=== PATIENT | male | born 1945 | race Two or more races ===

== ENCOUNTER 2017-08-11 11:49 | Observation (INO) | payer MEDICARE ==
[~2017-08-11] VITALS: Ht 165.1 cm; Wt 63.6 kg
[2017-08-11] MEDS: IPRATROPIUM BROMIDE 0.02% 2.5 ML NEB NEB SCH (00:02)
[~2017-08-11 11:49] MED LIST: ADVAIR 250-501 EACH INH; ALBUTEROL; ASPIR 8181 MG PO; CLONIDINE HCL0.2 MG PO; HYDRALAZINE HCL10 MG PO; ISOSORBIDE MONO30 MG PO; LANTUS100 UNITS/ SQ; LEVOTHYROXINE50 MCG PO; LIPITOR40 MG PO; LOSARTAN-HCTZ1 EAC1; METFORMIN HCL1000 MG PO; METFORMIN PO; PLAVIX75 MG PO; PROSCAR5 MG PO; SINGULAIR10 MG PO; THEODUR PO; VERAPAMIL HCL240 MG PO
[2017-08-11] MEDS ORDERED: ASPIRIN 81 MG CHEW TAB PO ONE ×2 (12:30→14:15)
[2017-08-11 12:59] LABS: BASOPHILS # (AUTO) 0.1 (0.0-0.1); BASOPHILS % 0.7 % (0.0-1.0); EOSINOPHILS # (AUTO) 0.1 (0.0-0.4); EOSINOPHILS % 0.8 % (0.0-6.0); HEMATOCRIT 43.1 % (38.2-49.6); HEMOGLOBIN 14.2 g/dL (14.0-18.0); LYMPHOCYTES # (AUTO) 1.5 (1.0-3.2); LYMPHOCYTES % 19.5 % (18.0-39.1); MEAN CORPUSCULAR HEMOGLOBIN 27.8 pg (28-32); MEAN CORPUSCULAR HGB CONC 32.9 g/dL (31-35); MEAN CORPUSCULAR VOLUME 84.5 fL (81-99); MONOCYTES # (AUTO) 0.8 (0.2-0.8); MONOCYTES % 10.1 % (4.4-11.3); NEUTROPHILS # (AUTO) 5.1 (2.1-6.9); NEUTROPHILS % 68.8 % (38.7-80.0); PLATELET COUNT 254 x10e3/uL (140-360); RED CELL DISTRIBUTION WIDTH 14.7 % (11.7-14.4)
[2017-08-11 13:00] LABS: BILIRUBIN,URINE NEGATIVE (NEGATIVE); KETONES,URINE NEGATIVE (NEGATIVE); LEUKOCYTE ESTERASE ,URINE 1+ (NEGATIVE); NITRITE,URINE NEGATIVE (NEGATIVE); URINE UROBILINOGEN 0.2 mg/dL (0.2 - 1)
[2017-08-11 13:01] LABS: CLARITY,URINE SL CLOUDY (CLEAR); COLOR,URINE YELLOW (YELLOW); PROTEIN,URINE DIPSTICK 1+ (NEGATIVE)
[2017-08-11 13:08] LABS: INR 1.17
[2017-08-11 13:17] LABS: ALANINE AMINOTRANSFERASE 17 IU/L (0-55); ALBUMIN 4.2 g/dL (3.5-5.0); ALBUMIN/GLOBULIN RATIO 1.1 (0.8-2.0); ALKALINE PHOSPHATASE 55 IU/L (40-150); ANION GAP 18.1 mmol/L (8-16); BLOOD UREA NITROGEN 14 mg/dL (7-26); BUN/CREATININE RATIO 12 (6-25); CALCIUM 10.3 mg/dL (8.4-10.2); CARBON DIOXIDE 25 mmol/L (22-29); CHLORIDE 101 mmol/L (98-107); CREATINE KINASE 96 IU/L (30-200); CREATININE, SERUM 1.16 mg/dL (0.72-1.25); EST GLOMERULAR FILTRATION RATE > 60 ML/MIN (60-); GLUCOSE 288 mg/dL (74-118); POTASSIUM 4.1 mmol/L (3.5-5.1); SODIUM 140 mmol/L (136-145)
[2017-08-11 13:25] LABS: RBC,URINE 0-5 /HPF (0-5)
[2017-08-11 13:26] LABS: EPITHELIAL CELLS,URINE FEW /LPF; MUCUS,URINE RARE (RARE)
[2017-08-11] MEDS: NITROGLYCERIN 0.4 MG SUBL SL PRN ×3 (15:30→15:45)
[2017-08-11] MEDS ORDERED: MORPHINE SULFATE 2 MG/ML SYR IV STA (15:37)
[2017-08-11] MEDS ORDERED: DEXTROSE 50% SYRINGE 50 ML IV PRN ×2 (16:45→17:15)
[2017-08-11] MEDS: INSULIN REGULAR, HUMAN 100 UNIT/1 ML 3ML VIAL SQ SCH (17:15)
[2017-08-11 20:00] VITALS: BP 158/68
[2017-08-11] MEDS ORDERED: IOPAMIDOL 370 MG/ML 200 ML INFUS..BTL INJ ONE (20:12)
[2017-08-11] MEDS ORDERED: SODIUM CHLORIDE 0.9% 50ML 50 ML ONE (20:12)
--- NOTE | 2017-08-11 20:32 | History and Physical ---
This is a 72-year-old male who comes in with chest pain. HISTORY OF PRESENT ILLNESS: Mr. Joseph Harmon has a history of coronary artery disease, COPD, asthma, hypothyroidism. He was in his usual state of health until the patient started to have some shortness of breath associated with some chest pain. Three days prior to admission, the patient continued to have chest pain this morning. The patient's chest pain was intractable. He came into the emergency room and was admitted for chest pain, rule out acute coronary syndrome. HOME MEDICATIONS: Aspirin, atorvastatin 40, clonidine 0.2, Clopid 75, 5, Advair 250/50, hydralazine 10 mg q.12 h. Insulin 21 units at night time. Isosorbide dinitrate 60 mg. Levothyroxine 60 mcg. Losartan 125. Metformin 1000 mg twice a day. 10 mg. Verapamil 240 mg ER. SOCIAL HISTORY: No ETOH. No IV drug abuse. He lives with his . REVIEW OF SYSTEMS: Positive for chest pain. Positive for shortness of breath. No nausea, vomiting, diarrhea. No constipation. No rectal bleeding. No hematochezia and no hematemesis. No blurry vision. No diplopia. No paresthesias. No neurological findings. PHYSICAL EXAMINATION VITAL SIGNS: Temperature normal. Blood pressure 140/80. Pulse oximetry 100% on 2 liters. HEENT: Normocephalic, atraumatic. Pupils react to light and accommodation. LUNGS: Decreased air entry. Positive for some scattered inspiratory wheezes. ABDOMEN: Nontender, nondistended. EXTREMITIES: No cyanosis, clubbing or edema. LABORATORY DATA: White count is 7.45. Platelets 254,000. Chemistry: Sodium 140, potassium 4.1, BUN 114 and creatinine 1.16. Glucose 288. Calcium 10.3. Urine showed a few bacteria, otherwise negative. IMAGING: Chest x-ray has not been read. ASSESSMENT: Chest pain, rule out acute coronary syndrome. Troponins have been negative so far. Will consult Dr. Dodge, his phytopathology teacher, and also consulted Dr. Jernigan, his quarter section ironer. Will also do a CT scan and D-dimer levels to rule out pulmonary embolism. Further recommendations depending on clinical course. Will also restart his home medications. Job#: [id number] GH
[2017-08-11] MEDS ORDERED: NON-FORMULARY MEDICATION (Metformin Hcl 1,000 MG) PO SCH (21:00)
[2017-08-11] MEDS ORDERED: METFORMIN HCL 500 MG TAB CR PO SCH (21:00)
[2017-08-11 21:06] LABS: CREATINE KINASE MB 1.6 ng/mL (0-5.0)
--- NOTE | 2017-08-11 22:16 | Diagnostic Imaging Report ---
EXAM: CT CHEST W ORDER DATE: 08/11/2017 7:09 PM Time stamp on exam: 2121 hours INDICATION: Chest pain, tightness, difficulty breathing COMPARISON: None TECHNIQUE: Multidetector CT scanning of the chest was performed. Coronal and sagittal multiplanar reformations were obtained. PE protocol performed IV Contrast: 100 cc Isovue-370 CTDIvol has been reviewed. It is below the limits set by the Radiation Protocol Committee (RPC). FINDINGS: LUNGS AND AIRWAYS: The trachea and major bronchi are unremarkable. Left apical scarring. Right upper lobe, middle lobe and lingular scarring. Small foci of bronchiolitis in each lung base and possibly superimposed in the left upper lung scarring as well. Moderate bronchial thickening. PLEURA: Pleural parenchymal scarring left apex. HEART, MEDIASTINUM, VESSELS: The heart is within normal size limits. Scattered coronary artery calcifications. Calcifications of the thoracic aorta without aneurysm. No evidence of a pulmonary embolism to the segmental level. UPPER ABDOMEN: Nodular hyperplasia of the bilateral adrenal glands. MUSCULOSKELETAL: No acute findings. IMPRESSION: No evidence of a pulmonary embolism. Scattered areas of bronchiolitis. Signed by: Dr. Mary Vogel M.D. on 08/11/2017 10:12 PM
[2017-08-11] MEDS: ATORVASTATIN 40 MG TAB PO SCH (22:46)
[2017-08-12] VITALS (7 sets, daily range): BP systolic 113–196; BP diastolic 55–78
[2017-08-12] MEDS: INSULIN DETEMIR 100 UNIT/ML PEN SQ SCH ×2 (00:15→22:09)
[2017-08-12] MEDS ORDERED: CLONIDINE HCL 0.1 MG TAB PO PRN (03:00)
[2017-08-12] MEDS: IPRATROPIUM BROMIDE 0.02% 2.5 ML NEB NEB SCH ×6 (03:30→22:05)
[2017-08-12] MEDS ORDERED: GABAPENTIN100 MG (06:13)
[2017-08-12 06:37] LABS: BASOPHILS # (AUTO) 0.1 (0.0-0.1); BASOPHILS % 0.8 % (0.0-1.0); EOSINOPHILS # (AUTO) 0.2 (0.0-0.4); EOSINOPHILS % 2.4 % (0.0-6.0); HEMATOCRIT 40.7 % (38.2-49.6); HEMOGLOBIN 13.3 g/dL (14.0-18.0); LYMPHOCYTES # (AUTO) 1.6 (1.0-3.2); LYMPHOCYTES % 21.6 % (18.0-39.1); MEAN CORPUSCULAR HEMOGLOBIN 27.8 pg (28-32); MEAN CORPUSCULAR HGB CONC 32.7 g/dL (31-35); MEAN CORPUSCULAR VOLUME 85.1 fL (81-99); MONOCYTES # (AUTO) 0.7 (0.2-0.8); NEUTROPHILS # (AUTO) 4.8 (2.1-6.9); NEUTROPHILS % 64.9 % (38.7-80.0); PLATELET COUNT 240 x10e3/uL (140-360); RED BLOOD COUNT 4.78 x10e6/uL (4.3-5.7); RED CELL DISTRIBUTION WIDTH 14.6 % (11.7-14.4)
[2017-08-12 07:01] LABS: ALANINE AMINOTRANSFERASE 13 IU/L (0-55); ALBUMIN 3.4 g/dL (3.5-5.0); ALBUMIN/GLOBULIN RATIO 1.1 (0.8-2.0); ALKALINE PHOSPHATASE 44 IU/L (40-150); ANION GAP 14.2 mmol/L (8-16); BLOOD UREA NITROGEN 15 mg/dL (7-26); BUN/CREATININE RATIO 17 (6-25); CALCIUM 8.9 mg/dL (8.4-10.2); CARBON DIOXIDE 27 mmol/L (22-29); CHLORIDE 104 mmol/L (98-107); CHOLESTEROL 104 MD/DL (0-199); CREATINE KINASE 76 IU/L (30-200); CREATININE, SERUM 0.86 mg/dL (0.72-1.25); EST GLOMERULAR FILTRATION RATE > 60 ML/MIN (60-); HDL CHOLESTEROL 26 MG/DL (40-60); LDL CHOLESTEROL 64 MG/DL (60-130); POTASSIUM 3.2 mmol/L (3.5-5.1); SODIUM 142 mmol/L (136-145); TRIGLYCERIDES 69 MG/DL (0-149)
[2017-08-12 07:07] LABS: GLUCOSE 52 mg/dL (74-118)
[2017-08-12] MEDS: INSULIN REGULAR, HUMAN 100 UNIT/1 ML 3ML VIAL SQ SCH ×4 (07:30→22:08)
[2017-08-12] MEDS: ASPIRIN 81 MG CHEW TAB PO SCH (08:28)
[2017-08-12] MEDS: VERAPAMIL HCL 240 MG TABSR PO SCH (08:28)
[2017-08-12] MEDS: ISOSORBIDE MONONITRATE 30 MG TAB CR PO SCH (08:28)
[2017-08-12] MEDS: FINASTERIDE 5 MG TAB PO SCH (08:29)
[2017-08-12] MEDS: CLONIDINE HCL 0.2 MG TAB PO SCH ×2 (08:29→17:00)
[2017-08-12] MEDS ORDERED: ASPIRIN 325 MG TAB EC PO SCH (09:00)
[2017-08-12] MEDS ORDERED: LEVOTHYROXINE SODIUM 50 MCG TAB PO SCH (09:00)
[2017-08-12] MEDS ORDERED: MONTELUKAST SODIUM 10 MG TAB PO SCH ×2 (09:00→21:00)
[2017-08-12] MEDS ORDERED: CLOPIDOGREL BISULFATE 75 MG TAB PO SCH (09:00)
[2017-08-12] MEDS ORDERED: NON-FORMULARY MEDICATION (Atorvastatin Calcium (Lipitor) 40 MG) PO SCH (09:00)
[2017-08-12] MEDS ORDERED: THEOPHYLLINE PO SCH (09:00)
[2017-08-12] MEDS ORDERED: THEOPHYLLINE 200 MG TABCR PO SCH (09:00)
[2017-08-12] MEDS: GABAPENTIN 100 MG CAP PO SCH (12:09)
[2017-08-12] MEDS ORDERED: HYDRALAZINE HCL 20 MG/ML VIAL IV PRN ×2 (12:30)
[2017-08-12] MEDS ORDERED: METOPROLOL TARTRATE INJ 1 MG/ML VIAL IV PRN (12:30)
[2017-08-12 12:47] LABS: MAGNESIUM 1.7 MG/DL (1.3-2.1); PHOSPHORUS 4.2 MG/DL (2.3-4.7)
[2017-08-12 12:53] LABS: CREATINE KINASE MB 1.4 ng/mL (0-5.0)
[2017-08-12 13:04] LABS: FREE THYROXINE INDEX 2.5993 (1.4-3.8); THYROID STIMULATING HORMONE 2.304 uIU/mL (0.350-4.940)
[2017-08-12] MEDS ORDERED: POTASSIUM CHLORIDE 20 MEQ TAB CR PO PRN (13:30)
--- NOTE | 2017-08-12 13:34 | Consultation ---
DATE OF CONSULTATION: PULMONARY CONSULTATION PATIENT OF: Dr. Johnie Arriaga. HPI: A charming 72-year-old gentleman, well known to the pulmonary service, admitted with chest tightness and shortness of breath. No cough. No fever and chills. History of hypertension, coronary artery disease. History of bypass surgery in 1999. History of BOOP. History of asthma. Pain relieved in the emergency room with nitroglycerin. Insulin-dependent diabetes. His asthma has been stable for many years. His list of medications, which apparently were not noted in the emergency room or by the nursing staff on the floor were not restarted. He has been on Apresoline, Losartan, verapamil, metformin, Lantus insulin, NovoLog insulin, Levoxyl, Neurontin, Plavix, aspirin, Singulair, theophylline, Lipitor, Zantac, albuterol, Advair, Ismo, and clonidine p.r.n. He sees Dr. Dodge. PHYSICAL EXAMINATION GENERAL: He is a well-developed white male, in no acute distress, looking stated age. VITAL SIGNS: Temperature 97.2, pulse 70, respirations 18, blood pressure 123/71. HEENT: Head normocephalic, atraumatic. Eyes; extraocular movements intact. NECK: Median sternotomy scar well healed. LUNGS: Diminished breath sounds. HEART: Regular rhythm. ABDOMEN: Nontender. EXTREMITIES: Nonedematous. Nonspecific EKG changes suggesting ischemia. Cardiology opinion is pending. Blood sugar has been well controlled. Metformin is held. White count was elevated on admission at 13.69, though afebrile. CT angiogram reveals no evidence of pulmonary embolus. There is evidence of bronchiolitis. Thank you for this kind referral. Job#: [id number] VAS
[2017-08-12] MEDS ORDERED: POTASSIUM CHLORIDE 20 MEQ TAB CR PO NR ×2 (13:45→17:00)
[2017-08-12] MEDS: SALMETEROL/FLUTICASONE 250/50 INH SCH (17:00)
[2017-08-12] MEDS ORDERED: HYDRALAZINE HCL 10 MG TAB PO SCH (21:00)
[2017-08-12] MEDS: CLOPIDOGREL BISULFATE 75 MG TAB PO SCH (21:00)
[2017-08-12] MEDS ORDERED: ISOSORBIDE MONONITRATE 30 MG TAB CR PO SCH (21:00)
[2017-08-12] MEDS ORDERED: CLONIDINE HCL 0.1 MG TAB PO SCH (21:00)
[2017-08-12] MEDS: THEOPHYLLINE 200 MG TABCR PO SCH (22:07)
[2017-08-12] MEDS: ATORVASTATIN 40 MG TAB PO SCH (22:07)
[2017-08-13] VITALS: BP 131/60
[2017-08-13] MEDS: IPRATROPIUM BROMIDE 0.02% 2.5 ML NEB NEB SCH ×4 (03:00→15:39)
[2017-08-13 04:00] VITALS: BP 138/69
[2017-08-13] MEDS ORDERED: LEVOTHYROXINE SODIUM 50 MCG TAB PO SCH (07:30)
[2017-08-13 08:00] VITALS: BP 130/67
[2017-08-13] MEDS: VERAPAMIL HCL 240 MG TABSR PO SCH (08:35)
[2017-08-13] MEDS: CLONIDINE HCL 0.2 MG TAB PO SCH (08:35)
[2017-08-13] MEDS: INSULIN REGULAR, HUMAN 100 UNIT/1 ML 3ML VIAL SQ SCH ×2 (08:35→11:50)
[2017-08-13] MEDS: ASPIRIN 81 MG CHEW TAB PO SCH (08:35)
[2017-08-13] MEDS: ISOSORBIDE MONONITRATE 30 MG TAB CR PO SCH (08:36)
[2017-08-13] MEDS: THEOPHYLLINE 200 MG TABCR PO SCH (08:36)
[2017-08-13] MEDS: GABAPENTIN 100 MG CAP PO SCH (08:36)
[2017-08-13] MEDS: FINASTERIDE 5 MG TAB PO SCH (08:36)
[2017-08-13] MEDS: CLOPIDOGREL BISULFATE 75 MG TAB PO SCH (08:39)
[2017-08-13] MEDS: SALMETEROL/FLUTICASONE 250/50 INH SCH (10:39)
[2017-08-13 11:56] VITALS: BP 154/78
[2017-08-13 15:19] VITALS: BP 142/62
[2017-08-14] MEDS ORDERED: METFORMIN HCL 500 MG TAB CR PO SCH (17:00)
== END 2017-08-13 16:23 | disposition home or self-care (01) ==
LOC: ER 11:49 → ERHOLD 14:36 → IMCU 19:56
PROVIDERS: ADMIT Family Medicine; ATTEND Family Medicine
DX: R07.89 Other chest pain (principal); I10 Essential (primary) hypertension; E11.9 Type 2 diabetes mellitus without complications; E78.5 Hyperlipidemia, unspecified; J44.9 Chronic obstructive pulmonary disease, unspecified; Z95.1 Presence of aortocoronary bypass graft; I25.10 Atherosclerotic heart disease of native coronary artery without angina pectoris; E03.9 Hypothyroidism, unspecified; J98.4 Other disorders of lung
CPT/HCPCS: 36415 ×3; 71045; 71260; 80053 ×2; 80061; 81001; 82550 ×2; 82553 ×2; 82948 ×3; 83735; 83880 ×2; 84100; 84436; 84443; 84479; 84484 ×2; 84550; 85025 ×2; 85379; 85610; 85730; 93005 ×2; 93306; 94640 ×4; 99284; G0378 ×3; J2270; Q9967

== ENCOUNTER → 2017-09-12 | Outpatient (CLI) | payer MEDICARE ==
[~2017-09-12] MED LIST changes: +GABAPENTIN100 MG
--- NOTE | 2017-09-12 11:51 | Diagnostic Imaging Report ---
PROCEDURE:CT CHEST WITHOUT CONTRAST COMPARISON:[facility], CT, CT CHEST WO, 01/23/2017, 13:46. INDICATIONS:FEVER, SHORT OF BREATH TECHNIQUE: Axial CT images of the chest were obtained from the lung apices through the adrenal glands. Coronal and sagittal reformations were made available for review. No intravenous contrast was administered. RADIATION DOSE: Total DLP: 345.61 mGy*cm Estimated effective dose: (DLP x 0.014 x size factor) mSv FINDINGS: Lungs: Right lung: Diffusely hyperinflated with multiple peripheral groundglass nodules throughout the lung. The majority of these are new. Some for example, in the base of the right middle lobe, are grossly stable. There is diffuse bronchial wall thickening. A semi-solid nodule has developed in the posterior apex (image 20) measuring 7 x 8 mm. Left lung: Diffusely hyperinflated with multiple peripheral ground glass nodules in the mid and lower lung zones. These are new. Chronic atelectasis in the lingula is stable. Fibrotic changes in the apex are stable. There is diffuse bronchial wall thickening. Airways: Main airways are patent. Pleura:Left apical pleural thickening measures 2.2 cm and is stable in appearance. No pleural effusions have developed. Heart \T\ Mediastinum:Stable cardiac bypass changes. The main pulmonary artery measures 2.9 cm. The descending aorta measures 3 cm. No pericardial effusion. The esophagus is collapsed. Lymph nodes: No enlarged axillary or subclavicular lymph nodes. Mediastinal lymph nodes are prominent, measuring up to 12 mm in length. Some of these lymph nodes have fatty ernestina. A right paratracheal lymph node measures 7 x 11 mm (previously, 7 x 10 mm). A right paratracheal lymph node (image 27) measures 9 mm (previously, 7 mm). No enlarged subcarinal lymph nodes or hilar lymph nodes given the lack of intravenous contrast. Upper abdomen:Visualized portions of the liver and spleen are normal. The gallbladder is present and is grossly normal. There is bilateral thickening and nodularity of the adrenal glands, similar to previous exam. There are tiny calcifications in the pancreas without evidence of ductal dilatation. A 2.4 cm low attenuating lesion in the upper pole the left kidney is incompletely imaged. Musculoskeletal:Median sternotomy is well healed. There degenerative changes of the spine consistent with a. No compression deformities. No lytic or blastic lesions. CONCLUSION: 1. Interval development of inflammatory appearing nodules throughout the lungs with diffuse bronchial wall thickening. Findings are suggestive of bronchopneumonia. 2. Stable pulmonary hyperinflation consistent with COPD. 3. Top normal size of the main pulmonary artery. 4. Chronic left apical fibrotic changes and pleural thickening are stable. 5. Mildly prominent mediastinal lymph nodes are likely reactive. 6. New right upper lobe nodule should be followed in 4-6 months to assess interval change/resolution. 7. Stable bilateral adrenal hyperplasia. 8. Low attenuating lesion in left kidney is likely a cyst. This should be confirmed with renal ultrasound. 9. Stable postoperative changes from cardiac bypass. Dictated by: Andreia Gadriner M.D. on 09/12/2017 at 11:52 Electronically approved by: Andreia Gardiner M.D. on 09/12/2017 at 11:52
== END ==
LOC: CT 10:04
PROVIDERS: ATTEND Internal Medicine
DX: R50.9 Fever, unspecified (principal)
CPT/HCPCS: 71250

== ENCOUNTER → 2018-10-30 | Outpatient (CLI) | payer MEDICARE ==
--- NOTE | 2018-10-30 11:52 | Diagnostic Imaging Report ---
Chest, 2 views, 10/30/2018. History: Cough. Comparison: CT chest 08/11/2017. Findings: The cardiomediastinal silhouette and pulmonary vasculature are within normal limits. Left apical pleural thickening and diffuse left-sided pulmonary scarring are unchanged. Scattered linear scarring is also noted in the right lung. There is no focal consolidation or effusion. Median sternotomy wires are present. There are no acute osseous or soft tissue abnormalities. Impression: No acute cardiopulmonary abnormality. Signed by: Sulaiman Stanton on 10/30/2018 11:49 AM
== END ==
LOC: RAD 10:01
PROVIDERS: ATTEND Family Medicine
DX: R05 Cough (principal)
CPT/HCPCS: 71046

== ENCOUNTER → 2019-04-12 | Outpatient (CLI) | payer MEDICARE ==
--- NOTE | 2019-04-12 11:20 | Diagnostic Imaging Report ---
EXAMINATION: MRI of the cervical spine without contrast HISTORY: Neck and left shoulder pain, cervical spondylosis COMPARISON: None available TECHNIQUE: Sagittal T1, T2, STIR; axial T2, gradient echo. FINDINGS: Curvature: Normal lordosis. Vertebrae: No evidence of neoplasm, infection, or fracture. Foramen magnum: No mass, Chiari malformation, or basilar invagination. Spinal Cord: Normal size and signal intensity. Soft Tissues: Unremarkable. Degenerative changes: C1-C2: Unremarkable. C2-C3: Unremarkable. C3-C4: Disc osteophyte complex formation, bilateral uncovertebral and facet arthrosis. Moderate spinal canal and left foraminal stenosis. Mild right foraminal stenosis. C4-C5: Disc osteophyte complex formation, bilateral uncovertebral and facet arthrosis. Moderate spinal canal and cksp-uf-kzstfozl bilateral foraminal stenosis. C5-C6: Asymmetric left disc osteophyte complex formation, bilateral uncovertebral and facet arthrosis. Mild spinal canal, moderate right and moderately severe left foraminal stenosis, compression upon the exiting left C6 root cannot be excluded. C6-C7: Minimal disc bulge and bilateral facet arthrosis. No stenoses C7-T1: Small disc osteophyte complex formation, mild uncovertebral and facet arthrosis. Minimal right foraminal narrowing. IMPRESSION: 1. Moderate degenerative spinal canal and left foraminal stenosis at C3-C4. 2. Moderate degenerative spinal canal and mqmn-mh-mnkpmikk foraminal stenosis at C4-C5. 3. Moderate right and moderately severe left foraminal stenoses at C5-C6, compression upon the exiting left C6 nerve root cannot be excluded. Signed by: Dr. Danelle Joel M.D. on 04/12/2019 11:17 AM
== END ==
LOC: MRI 09:41
PROVIDERS: ATTEND Physical Medicine & Rehabilitation
DX: M47.812 Spondylosis without myelopathy or radiculopathy, cervical region (principal)
CPT/HCPCS: 72141

== ENCOUNTER → 2019-07-24 | Day surgery (SDC) | payer MEDICARE ==
[2019-07-19 13:32] LABS: BASOPHILS % 0.3 % (0.0-1.0); EOSINOPHILS # (AUTO) 0.2 (0.0-0.4); EOSINOPHILS % 1.3 % (0.0-6.0); HEMATOCRIT 48.5 % (38.2-49.6); HEMOGLOBIN 16.5 g/dL (14.0-18.0); LYMPHOCYTES # (AUTO) 1.7 (1.0-3.2); LYMPHOCYTES % 12.4 % (18.0-39.1); MEAN CORPUSCULAR HEMOGLOBIN 28.1 pg (28-32); MEAN CORPUSCULAR VOLUME 82.6 fL (81-99); MONOCYTES # (AUTO) 1.1 (0.2-0.8); MONOCYTES % 8.2 % (4.4-11.3); NEUTROPHILS # (AUTO) 10.4 (2.1-6.9); NEUTROPHILS % 77.6 % (38.7-80.0); PLATELET COUNT 308 x10e3/uL (140-360); RED BLOOD COUNT 5.87 x10e6/uL (4.3-5.7); RED CELL DISTRIBUTION WIDTH 13.9 % (11.7-14.4)
[~2019-07-24] MED LIST changes: +BREO ELLIPTA 21 EACH INH; +FENTANYL CITRATE/PF 100MCG/2 ML INJ ONE; +GLUCAGON FOR INJ 1 MG VIAL ONE; +HYOSCYAMINE 0.125 MG TAB ONE; +NOVOLOG MI100 UNIT/1 SC; +PRO AIR INH; +PROPOFOL IV EMULSION 10 MG/ML 50 ML VIAL ONE
--- OUTSIDE RECORDS SUMMARY | 2019-07-24 10:33 | XMS REPORT ---
Author Author [facility] Address Unknown Phone Unavailable Care Team Providers Care Cia Agent Name Role Phone Ilene DUEÑAS Unavailable Unavailable BELKYS, KADY Unavailable Unavailable MICHELLE, ALFARO Unavailable Unavailable Problems This patient has no known problems. Allergies, Adverse Reactions, Alerts This patient has no known allergies or adverse reactions. Medications This patient has no known medications. Results Test Description Test Time Test Comments Text Results Atomic Results Result Comments ABDOMEN 2 VIEW 2019-07-02 14:48:00 [place] [address] Patient Name: CHELSEA TABARES MR #: [id number] : 1945 Age/Sex: 74/M Req #: [id number] Adm Physician: Ordered by: MARRY DUEÑAS MD Report #: [id number] Location: [facility] Room/Bed: Procedure: [id number] DX/ABDOMEN 2 VIEW Exam Date: 07/02/19 Exam Time: 1425 REPORT STATUS: Signed Exam: KUB - 2 views Indication: Constipation Zeyad rison: None Findings: Not obstructive bowel gas pattern. No free air. Normal stool burden in the colon. Phleboliths in the pelvis. No acute osseous injury. Mild degenerative changes of the visualized spine. The partially visualized lung bases appear clear. Impression: Nonobstructive bowel gas pattern. No free air. Normal stool burden in the colon. Signed by: Tao Loya MD on 07/02/2019 2:49 PM Dictated By: TAO LOYA MD 48 Transcribed By: AMPARO on 07/02/191448 COPY TO: MARRY DUEÑAS MD MRI SPINE CERVICAL WO 2019-04-12 11:09:00 [place] [address] Patient Name: CHELSEA TABARES MR #: [id number] : 1945 Age/Sex: 73/M Req #: [id number] Adm Physician: Ordered by: KADY RIZVI M.D. Report #: [id number] Location: MRI Room/Bed: Procedure: [id number] MRI/MRI SPINE CERVICAL WO Exam Date: Exam Time: REPORT STATUS: Signed EXAMINATION: MRI of the cervical spine without contrast HI STORY: Neck and left shoulder pain, cervical spondylosis COMPARISON: None available TECHNIQUE: Sagittal T1, T2, STIR; axial T2, gradient echo. FINDINGS: Curvature: Normal lordosis. Vertebrae: No evidence of neoplasm, infection, or fracture. Foramen magnum: No mass, Chiari malformation, or basilar invagination. Spinal Cord: Normal size and signal intensity. Soft Tissues: Unremarkable. Degenerative changes: C1-C2: Unremarkable. C2-C3: Unremarkable. C3-C4: Disc osteophyte complex formation, bilateral uncovertebral and facet arthrosis. Moderate spinal canal and left foraminal stenosis. Mild right foraminal stenosis. C4-C5: Disc osteophyte complex formation, bilateral uncovertebral and facet arthrosis. Moderate spinal canal and vllg-vl-alawqcwr bilateral foraminal stenosis. C5-C6: Asymmetric left disc osteophyte complex formation, bilateral uncovertebral and facet arthrosis. Mild spinal canal, moderate right and moderately severe left foraminal stenosis, compression upon the exiting left C6 root cannot be excluded. C6-C7: Minimal disc bulge and bilateral facet arthrosis. No stenoses C7-T1: Small disc osteophyte complex formation, mild uncovertebral and facet arthrosis. Minimal right foraminal narrowing. IMPRESSION: 1. Moderate degenerative spinal canal and left foraminal stenosis at C3-C4. 2. Moderate degenerative spinal canal and cqot-vt-xwiirlmh foraminal stenosis at C4-C5. 3. Moderate right and moderately severe left foraminal stenoses at C5-C6, compression upon the exiting left C6 nerve root cannot be excluded. Signed by: Dr. Danelle Joel M.D. on 04/12/2019 11:17 AM Dictated By: DANELLE JOEL MD 16 Transcribed By: AMPARO on 04/12/191116 COPY TO: KADY RIZVI M.D. CHEST 2 VIEWS 2018-10-30 11:48:00 [place] [address] Patient Name: CHELSEA TABARES MR #: [id number] : 1945 Age/Sex: 73/M Req #: [id number] Adm Physician: Ordered by: MARRY DUEÑAS MD Report #: [id number] Location: [facility] Room/Bed: Procedure: [id number] DX/CHEST 2 VIEWS Exam Date: 10/30/18 Exam Time: 1042 REPORT STATUS: Signed Chest, 2 views, 10/30/2018. History: Cough. Comparison: CT chest 08/11/2017. Findings: The cardiomediastinal silhouette and pulmonary vasculature are within normal limits. Left apical pleural thickening and diffuse left-sided pulmonary scarring are unchanged. Scattered linear scarring is also noted in the right lung. There is no focal consolidation or effusion. Median sternotomy wires are present. There are no acute osseous or soft tissue abnormalities. Impression: No acute cardiopulmonary abnormality. Signed by: Sulaiman Stanton on 10/30/2018 11:49 AM Dictated By: SULAIMAN STANTON MD 1149 Transcribed By: AMPARO on 10/30/18 1149 COPY TO: MARRY DUEÑAS MD CT CHEST WO [place] [address] Patient Name: CHELSEA TABARES MR #: [id number] : 1945 Age/Sex: 72/M Req #: [id number] Adm Physician: Ordered by: DOMINIC MARTINEZ MD Report #: [id number] Location: CT Room/Bed: Procedure: [id number] CT/CT CHEST WO Exam Date: 09/12/17 Exam Time: 1025 REPORT STATUS: Signed PROCEDURE: CT CHEST WITHOUT CONTRAST COMPARISON: [facility], CT, CT CHEST WO, 01/23/2017, 13:46. INDICATIONS: FEVER, SHORT OF BREATH TECHNIQUE: Axial CT images of the chest were obtained from the lung apices through the adrenal glands. Coronal and sagittal reformations were made available for review. No intravenous contrast was administered. RADIATION DOSE: Total DLP: 345.61 mGy*cm Estimated effective dose: (DLP x 0.014 x size factor) mSv FINDINGS: Lungs: Right lung: Diffusely hyperinflated with multiple peripheral groundglass nodules throughout the lung. The majority of these are new. Some for example, in the base of the right middle lobe, are grossly stable. There is diffuse bronchial wall thickening. A semi-solid nodule has developed in the posterior apex (image 20) measuring 7 x 8 mm. Left lung: Diffusely hyperinflated with multiple peripheral ground glass nodules in the mid and lower lung zones. These are new. Chronic atelectasis in the lingula is stable. Fibrotic changes in the apex are stable. There is diffuse bronchial wall thickening. Airways: Main airways are patent. Pleura: Left apical pleural thickening measures 2.2 cm and is stable in appearance. No pleural effusions have developed. Heart T Mediastinum: Stable cardiac bypass changes. The main pulmonary artery measures 2.9 cm. The descending aorta measures 3 cm. No pericardial effusion. The esophagus is collapsed. Lymph nodes: No enlarged axillary or subclavicular lymph nodes. Mediastinal lymph nodes are prominent, measuring up to 12 mm in length. Some of these lymph nodes have fatty ernestina. A right paratracheal lymph node measures 7 x 11 mm (previously, 7 x 10 mm). A right paratracheal lymph node (image 27) measures 9 mm (previo usly, 7 mm). No enlarged subcarinal lymph nodes or hilar lymph nodes given the lack of intravenous contrast. Upper abdomen: Visualized portions of the liver and spleen are normal. The gallbladder is present and is grossly normal. There is bilateral thickening and nodularity of the adrenal glands, similar to previous exam. There are tiny calcifications in the pancreas without evidence of ductal dilatation. A 2.4 cm low attenuating lesion in the upper pole the left kidney is incompletely imaged. Musculoskeletal: Median sternotomy is well healed. There degenerative changes of the spine consistent with a. No compression deformities. No lytic or blastic lesions. CONCLUSION: 1. Interval development of inflammatory appearing nodules throughout the lungs with diffuse bronchial wall thickening. Findings are suggestive of bronchopneumonia. 2. Stable pulmonary hyperinflation consistent with COPD. 3. Top normal size of the main pulmonary artery. 4. Chronic left apical fibrotic changes and pleural thickening are stable. 5. Mildly prominent mediastinal lymph nodes are likely reactive. 6. New right upper lobe nodule should be followed in 4-6 months to assess interval change/resolution. 7. Stable bilateral adrenal hyperplasia. 8. Low attenuating lesion in left kidney is likely a cyst. This should be confirmed with renal ultrasound. 9. Stable postoperative changes from cardiac bypass. Dictated by: Karis Gardiner M.D. on 09/12/2017 at 11:52 Electronically approved by: Karis Gardiner M.D. on 09/12/2017 at 11:52 Dictated By: KARIS GARDINER MD 1152 Transcribed By: MONICO on 09/12/17 1152 COPY TO: DOMINIC MARTINEZ MD CT CHEST W [place] [address] Patient Name: CHELSEA TABARES MR #: [id number] : 1945 Age/Sex: 72/M Req #: [id number] [facility] Physician: MARRY DUEÑAS MD Ordered by: MARRY DUEÑAS MD Report #: [id number] Location: [facility] Room/Bed: [place] [address] Procedure: [id number] CT/CT CHEST W Exam Date: 08/11/17 Exam Time: 2117 REPORT STATUS: Signed EXAM: CT CHEST W ORDER DATE: 08/11/2017 7:09 PM Time stamp on exam: 2120 hours INDICATION: Chest pain, tightness, difficulty breathing COMPARISON: None TECHNIQUE: Multidetector CT scanning of the chest was performed. Coronal and sagittal multiplanar reformations were obtained. PE protocol performed IV Contrast: 100 cc Isovue-370 CTDIvol has been reviewed. It is below the limits set by the Radiation Protocol Committee (RPC). FINDINGS: LUNGS AND AIRWAYS: The trachea and major bronchi are unremarkable. Left apical scarring. Right upper lobe, middle lobe and lingular scarring. Small foci of bronchiolitis in each lung base and possibly superimposed in the left upper lung scarring as well. Moderate bronchial thickening. PLEURA: Pleural parenchymal scarring left apex. HEART, MED IASTINUM, VESSELS: The heart is within normal size limits. Scattered coronary artery calcifications. Calcifications of the thoracic aorta without aneurysm. No evidence of a pulmonary embolism to the segmental level. UPPER ABDOMEN: Nodular hyperplasia of the bilateral adrenal glands. MUSCULOSKELETAL: No acute findings. IMPRESSION: No evidence of a pulmonary embolism. Scattered areas of bronchiolitis. Signed by: Dr. Vani Vogel M.D. on 08/11/2017 10:12 PM Dictated By: VANI VOGEL MD 11 Transcribed By: AMPARO on 08/11/172211 COPY TO: MARRY DUEÑAS MD
[2019-07-24 14:55] VITALS: BP 131/61
--- NOTE | 2019-07-24 15:01 | Operative Report ---
DATE OF PROCEDURE: 07/24/2019 SURGEON: Alex Brewer MD PROCEDURE: Colonoscopy with biopsies. INDICATIONS FOR COLONOSCOPY: Surveillance colonoscopy, personal history of colon polyps. MEDICATIONS: The patient was done under MAC, please see anesthesiologist's note. PROCEDURE IN DETAIL: With the patient in the left lateral decubitus position, a flexible fiberoptic Olympus colonoscope was inserted into the rectum with ease and advanced all the way to the cecum. It was then withdrawn slowly. Mucosa overlying the cecum appeared to be within normal limits. The ileocecal valve was intubated and the scope was advanced into the terminal ileum. The mucosa revealed some patchy areas of inflammation and biopsies were obtained. The scope was then withdrawn back into the colon. It was then withdrawn slowly. Mucosa overlying the ascending and transverse colon appeared to be within normal limits. Mild inflammatory changes were noted in the distal descending and sigmoid colon, and biopsies were obtained. The rectum grossly appeared to be within normal limits. The scope was then retroflexed into the distal rectum and the area around the dentate line revealed some moderate-sized internal hemorrhoids. The scope was then straightened out, it was subsequently withdrawn, and the patient tolerated the procedure well. IMPRESSION: 1. Mild patchy left-sided colitis. 2. Internal hemorrhoids, none actively bleeding. PLAN: Follow up histology. Initiate VSL#3 one p.o. daily. Alex Brewer MD [facility] [place]/[facility] /[id number] cc: Johnie Arriaga MD
== END | disposition home or self-care (01) ==
LOC: OR 10:25
PROVIDERS: ATTEND Internal Medicine Gastroenterology
DX: Z09 Encounter for follow-up examination after completed treatment for conditions other than malignant neoplasm (principal); Z86.010 Personal history of colon polyps; K51.50 Left sided colitis without complications; K64.8 Other hemorrhoids; K21.9 Gastro-esophageal reflux disease without esophagitis; K28.9 Gastrojejunal ulcer, unspecified as acute or chronic, without hemorrhage or perforation; I25.810 Atherosclerosis of coronary artery bypass graft(s) without angina pectoris; J45.909 Unspecified asthma, uncomplicated; I10 Essential (primary) hypertension; E11.9 Type 2 diabetes mellitus without complications; E03.9 Hypothyroidism, unspecified; E78.00 Pure hypercholesterolemia, unspecified; Z01.810 Encounter for preprocedural cardiovascular examination; Z01.812 Encounter for preprocedural laboratory examination; Z79.84 Long term (current) use of oral hypoglycemic drugs; Z79.02 Long term (current) use of antithrombotics/antiplatelets; Z79.4 Long term (current) use of insulin; Z95.1 Presence of aortocoronary bypass graft
CPT/HCPCS: 36415 ×2; 45380; 82948; 85025; 93005; J1610; J2704; J3010; 45378

== ENCOUNTER → 2020-01-20 | Outpatient (CLI) | payer MEDICARE ==
[~2020-01-20] MED LIST changes: -FENTANYL CITRATE/PF 100MCG/2 ML INJ ONE; -GLUCAGON FOR INJ 1 MG VIAL ONE; -HYOSCYAMINE 0.125 MG TAB ONE; -PROPOFOL IV EMULSION 10 MG/ML 50 ML VIAL ONE
--- NOTE | 2020-01-20 15:13 | Diagnostic Imaging Report ---
EXAMINATION: MRI of the cervical spine without contrast HISTORY: Neck and head pain COMPARISON: Cervical spine MRI 04/12/2019 TECHNIQUE: Sagittal T1, T2, STIR; axial T2, gradient echo. FINDINGS: Curvature: Normal lordosis. Chronic endplate degenerative changes from C3 to C6. Vertebrae: No evidence of neoplasm, infection, or fracture. Foramen magnum: No mass, Chiari malformation, or basilar invagination. Partially visualized tiny chronic cortical infarct in the right cerebellum. Spinal Cord: Normal size and signal intensity. Soft Tissues: Partially visualized and sternotomy wires. Degenerative changes: C1-C2: Unremarkable. C2-C3: Mild bilateral facet arthrosis. No stenosis. C3-C4: Disc osteophyte compresses formation, bilateral uncovertebral and facet arthrosis. Moderate spinal canal and left foraminal stenosis. Mild right foraminal stenoses.. C4-C5: Disc osteophyte complex formation, bilateral uncovertebral and facet arthrosis. Moderate spinal canal and [id number] bilateral foraminal stenosis. C5-C6: Disc osteophyte complex formation, bilateral uncovertebral catheter traverses. Moderate spinal canal and bilateral foraminal stenoses. Less conspicuous previously seen possible compression of the left C6 nerve root. C6-C7: Disc osteophyte complex formation, mild uncovertebral and facet are intraosseous. No significant canal or foraminal stenoses. C7-T1: Minimal disc bulge, no spinal canal or foraminal stenosis. IMPRESSION: 1. Moderate degenerative spinal canal stenosis from C3-C4 to C5-C6 is unchanged compared to MRI of 04/12/2019. 2. Also stable [id number] foraminal stenoses from C2-C3 to C6-C7 as detailed above. Signed by: Dr. Danelle Joel M.D. on 01/20/2020 3:09 PM
--- NOTE | 2020-01-20 15:15 | Diagnostic Imaging Report ---
EXAMINATION: MRI of the brain without contrast. HISTORY: Headache COMPARISON: None. TECHNIQUE: Sagittal T2; axial DWI, T2, FLAIR, T1-IR, T2 gradient echo; coronal FLAIR. FINDINGS: Parenchyma: 1. A couple of white matter T12. Hyperintense foci, most likely age-appropriate chronic microvascular ischemic changes. 2. 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 3. No mass, hemorrhage, no acute infarcts. Skull: Unremarkable. Vessels: Expected flow voids present in the major arteries and dural sinuses. Extra-axial spaces: No abnormal signal intensity or mass effect. Brain volume: Within normal limits for age. Ventricles: No hydrocephalus or displacement. Foramen magnum: Unremarkable. Sella: Unremarkable. Paranasal / mastoid sinuses: No significant inflammatory disease. 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 Otherwise no intracranial abnormalities. Signed by: Dr. Danelle Joel M.D. on 01/20/2020 3:12 PM
== END ==
LOC: MRI 13:16
PROVIDERS: ATTEND Family Medicine
DX: R51 Headache (principal); M54.12 Radiculopathy, cervical region
CPT/HCPCS: 70551; 72141

== ENCOUNTER → 2020-07-23 | Outpatient (CLI) | payer MEDICARE | LOC: MRI 10:42 | PROVIDERS: ATTEND Family Medicine | DX: R51.9 Headache, unspecified (principal) | CPT/HCPCS: 70551 ==